=== PATIENT | male | born 1985 | race Caucasian/White ===

== ENCOUNTER → 2016-03-26 | Outpatient (CLI) | payer MEDICAID ==
--- NOTE | 2016-03-26 17:03 | DX ---
Chest, PA and Lateral, 3 views History: Follow-up left lower lobe pneumonia post antibiotic therapy Comparison: None Findings: Lungs are clear, without left lower lobe infiltrate or consolidation. The costophrenic gutt ers are sharp, without pleural effusion formation. Heart size is relatively small, consistent with th e excellent inspiration. There is no adenopathy or mass lesion. Bones are unremarkable for age. Impression: Resolved left lower lobe pneumonia.
== END ==
LOC: BMCIMAGING 11:24
PROVIDERS: ATTEND Internal Medicine
DX: J18.9 Pneumonia, unspecified organism (principal)

== ENCOUNTER 2018-02-11 13:45 | Emergency (ER) | payer MEDICAID ==
[2018-02-11] MEDS ORDERED: ONDANSETRON DISINTEGRATING 4 MG TAB PO ONE (13:52)
--- NOTE | 2018-02-11 15:12 | EDPHY ---
H & P Stated Complaint: rectal pain, red blood in stool when wipes, nausea Time Seen by Provider: 02/11/18 15:00 HPI/ROS: CHIEF COMPLAINT: Rectal pain, abdominal pain, intermittent hematochezia HISTORY OF PRESENT ILLNESS: The patient presents the ED with a nearly 1 year history of intermittent hematochezia. The patient has been having several weeks of increasing lower abdominal pain and rectal discomfort. The patient denies significant NSAID usage, significant alcohol usage or smoking history. The patient denies any history of rectal trauma. The patient denies any prior history of abdominal or rectal surgery. The patient states that his symptoms are currently mild to moderate in nature. He has not seen a family and consumer sciences teacher for evaluation. REVIEW OF SYSTEMS: A comprehensive 10 point review of systems is otherwise negative aside from elements mentioned in the history of present illness. Source: Patient Exam Limitations: No limitations - Medical/Surgical History Hx Asthma: No Hx Chronic Respiratory Disease: No Hx Diabetes: No Hx Cardiac Disease: No Hx Renal Disease: No Hx Cirrhosis: No Hx Alcoholism: No Hx HIV/AIDS: No Hx Splenectomy or Spleen Trauma: No Other PMH: PNA - Social History Smoking Status: Never smoked - Physical Exam Exam: General Appearance: Alert, no distress Eyes: Pupils equal and round no pallor or injection ENT, Mouth: Mucous membranes moist Respiratory: There are no retractions, lungs are clear to auscultation Cardiovascular: Regular rate and rhythm Gastrointestinal: Minimal bilateral lower abdominal tenderness, normal bowel sounds Rectal: Brown stool noted, no obvious mass noted on digital rectal exam Neurological: 5/5 strength noted all 4 extremities Skin: Warm and dry, no rashes Musculoskeletal: Neck is supple nontender Extremities: symmetrical, full range of motion Psychiatric: Patient is oriented X 3, there is no agitation Constitutional: Initial Vital Signs Temperature (C) 36.7 C 02/11/18 13:49 Heart Rate 78 02/11/18 13:49 Respiratory Rate 18 02/11/18 13:49 Blood Pressure 178/80 H 02/11/18 13:49 O2 Sat (%) 97 02/11/18 13:49 O2 Delivery Mode Room Air Allergies/Adverse Reactions: No Known Allergies Allergy (Verified 11/07/12 01:00) Home Medications: Medication Instructions Recorded Hydrocortisone/Pramoxine 10 gm RC BID #1 foam 02/11/18 [Proctofoam-Hc 1%-1% Foam] Medical Decision Making ED Course/Re-evaluation: Patient presents to the ED with a 1 year history of intermittent rectal pain and lower GI bleeding. The patient is also having some mild lower abdominal discomfort. The patient was noted to have benign abdominal examination without clinical evidence of appendicitis, perforation or peritonitis. Laboratory workup in the ED is unrevealing. The patient has a normal CBC, normal serum chemistries, normal liver function tests and lipase. The patient' s stool is heme-negative. Certainly possible the patient is experiencing a fissure as the cause of his symptoms. Given his history of intermittent hematochezia I do feel that he should be evaluated by Gastroenterology for consideration of endoscopy. The patient will be given a prescription for Proctacort foam. The patient is referred to Dr. Moni Licea. Re-evaluated the patient at 4:00 p.m. and find his exam to be benign. I do not feel that imaging is indicated. Differential Diagnosis: Differential diagnosis considered includes internal hemorrhoid, anal fissure, thrombosed hemorrhoid, Crohn's disease, ulcerative colitis - Data Points Laboratory Results: Laboratory Results 02/11/18 15:14 02/11/18 15:14 02/11/18 02/11/18 02/11/18 15:16 15:14 15:14 WBC RBC Hgb Hct MCV MCH MCHC RDW Plt Count MPV Neut % (Auto) Lymph % (Auto) [place] % (Auto) Eos % (Auto) Baso % (Auto) Nucleat RBC Rel Count Absolute Neuts (auto) Absolute Lymphs (auto) Absolute Monos (auto) Absolute Eos (auto) Absolute Basos (auto) Absolute Nucleated RBC Immature Gran % Immature Gran # PT 13.4 SEC SEC (12.0-15.0) INR 1.00 (0.83-1.16) APTT 29.7 SEC SEC (23.0-38.0) Sodium 139 mEq/L mEq/L (135-145) Potassium 4.3 mEq/L mEq/L (3.5-5.2) Chloride 101 mEq/L mEq/L (97-110) Carbon Dioxide 29 mEq/l mEq/l (22-31) Anion Gap 9 mEq/L mEq/L (6-14) BUN 10 mg/dL mg/dL (7-23) Creatinine 0.8 mg/dL mg/dL (0.7-1.3) Estimated GFR > 60 Glucose 89 mg/dL mg/dL (70-100) Calcium 9.7 mg/dL mg/dL (8.5-10.4) Total Bilirubin 0.7 mg/dL mg/dL (0.1-1.4) Conjugated Bilirubin 0.2 mg/dL mg/dL (0.0-0.5) Unconjugated Bilirubin 0.5 mg/dL mg/dL (0.0-1.1) AST 31 IU/L IU/L (17-59) ALT 27 IU/L IU/L (21-72) Alkaline Phosphatase 81 IU/L IU/L (38-126) Total Protein 7.6 g/dL g/dL (6.3-8.2) Albumin 4.7 g/dL g/dL (3.5-5.0) Lipase Pending Stool Occult Bld Scrn NEGATIVE (NEGATIVE) 02/11/18 15:14 WBC 7.03 10^3/uL 10^3/uL (3.80-9.50) RBC 5.00 10^6/uL 10^6/uL (4.40-6.38) Hgb 16.8 g/dL g/dL (13.7-17.5) Hct 48.3 % % (40.0-51.0) MCV 96.6 fL fL (81.5-99.8) MCH 33.6 pg pg (27.9-34.1) MCHC 34.8 g/dL g/dL (32.4-36.7) RDW 12.6 % % (11.5-15.2) Plt Count 243 10^3/uL 10^3/uL (150-400) MPV 9.8 fL fL (8.7-11.7) Neut % (Auto) 59.5 % % (39.3-74.2) Lymph % (Auto) 30.7 % % (15.0-45.0) [place] % (Auto) 9.0 % % (4.5-13.0) Eos % (Auto) 0.1 % L % (0.6-7.6) Baso % (Auto) 0.3 % % (0.3-1.7) Nucleat RBC Rel Count 0.0 % % (0.0-0.2) Absolute Neuts (auto) 4.18 10^3/uL 10^3/uL (1.70-6.50) Absolute Lymphs (auto) 2.16 10^3/uL 10^3/uL (1.00-3.00) Absolute Monos (auto) 0.63 10^3/uL 10^3/uL (0.30-0.80) Absolute Eos (auto) 0.01 10^3/uL L 10^3/uL (0.03-0.40) Absolute Basos (auto) 0.02 10^3/uL 10^3/uL (0.02-0.10) Absolute Nucleated RBC 0.00 10^3/uL 10^3/uL (0-0.01) Immature Gran % 0.4 % % (0.0-1.1) Immature Gran # 0.03 10^3/uL 10^3/uL (0.00-0.10) PT INR APTT Sodium Potassium Chloride Carbon Dioxide Anion Gap BUN Creatinine Estimated GFR Glucose Calcium Total Bilirubin Conjugated Bilirubin Unconjugated Bilirubin AST ALT Alkaline Phosphatase Total Protein Albumin Lipase Stool Occult Bld Scrn Medications Given: Discontinued Medications Ondansetron HCl (Zofran Odt) 4 mg PO EDNOW ONE Stop: 02/11/18 13:53 Last Admin: 02/11/18 14:00 Dose: 4 mg Departure - Departure Disposition: Home, Routine, Self-Care Clinical Impression: Abdominal pain Condition: Good Instructions: Acute Abdominal Pain (ED) Additional Instructions: 1. Please use Proctacort as directed. 2. Contact the family and consumer sciences teacher, Dr. Moni Licea, you have been referred to to schedule a office visit. You may need a colonoscopy for further evaluation of your symptoms. 3. Return to the ED for markedly worsening abdominal pain, heavy uncontrolled bleeding or other concerns. Referrals: Eulogio Geller MD [Primary Care Provider] - As per Instructions Moni Licea MD [Medical Doctor] - As per Instructions Prescriptions: Hydrocortisone/Pramoxine [Proctofoam-Hc 1%-1% Foam] 10 gm RC BID #1 foam
[2018-02-11 15:34] LABS: PLATELET COUNT 243 10^3/uL (150-400)
[2018-02-11 15:37] LABS: PROTIME(PATIENT) 13.4 SEC (12.0-15.0)
[2018-02-11 16:20] VITALS: BP 141/74
== END 2018-02-11 16:18 | disposition home or self-care (01) ==
DX: K62.89 Other specified diseases of anus and rectum (principal); R10.30 Lower abdominal pain, unspecified